=== PATIENT | male | born 1985 | race Caucasian/White ===

== ENCOUNTER 2017-02-07 10:25 | Inpatient (IN) | payer OTHER ==
[~2017-02-07] VITALS: Ht 175.2 cm; Wt 75.1 kg
[2017-02-07] MEDS ORDERED: VALIUM10 MG PO (11:14)
[2017-02-07 12:00] VITALS: BP 114/62
[2017-02-07 12:31] LABS: BASO % 0.3 % (0.0-1.0); EOS # 0.2 10*3/uL (0.0-0.4); EOS % 2.3 % (1.0-4.0); HEMATOCRIT 39.9 % (42.0-52.0); HEMOGLOBIN 13.3 g/dl (14.0-18.0); LYMPH # 1.6 10*3/uL (1.3-4.4); LYMPH % 23.9 % (27.0-41.0); MEAN CELL VOLUME 88.5 fl (80.0-94.0); MEAN CORPUSCULAR HGB 29.5 pg (27.0-31.0); MEAN CORPUSCULAR HGB CONC 33.3 g/dl (33.0-37.0); MEAN PLATELET VOLUME 9.8 fl (9.6-12.3); MONO # 0.6 10*3/uL (0.1-1.0); MONO % 9.2 % (3.0-9.0); NEUT # 4.4 10*3/uL (2.3-7.9); PLATELET COUNT AUTOMATED 156 10*3/uL (130-400); RED BLOOD COUNT 4.51 10*6/uL (4.50-5.90); RED CELL DISTRI WIDTH 12.6 % (0-14.5); WHITE BLOOD COUNT 6.8 10*3/uL (4.8-10.8)
[2017-02-07 12:42] LABS: PROTHROMBIN TIME 10.5 SECONDS (9.0-12.4)
[2017-02-07 12:46] LABS: ALBUMIN 3.6 gm/dl (3.1-4.5); ALKALINE PHOSPHATASE 76 U/L (45-117); BILIRUBIN, TOTAL 0.2 mg/dl (0.2-1.0); BUN 14 mg/dl (7-24); CARBON DIOXIDE 31 mmol/L (21-32); CHLORIDE 104 mmol/L (98-107); EST GLOM FILT AFRICAN AMERICAN > 60 ml/min; GLUCOSE 105 mg/dL (65-99); POTASSIUM 4.4 mmol/L (3.5-5.1); SGOT/AST 46 IU/L (3-35); SGPT/ALT 89 U/L (12-78); SODIUM 139 mmol/L (136-145); TOTAL PROTEIN 6.7 gm/dL (6.4-8.2)
[2017-02-07 12:49] LABS: BILIRUBIN NEGATIVE (NEGATIVE); BLOOD NEGATIVE (NEGATIVE); CLARITY CLEAR (CLEAR); COLOR YELLOW (YELLOW); GLUCOSE NEGATIVE (NEGATIVE); KETONE NEGATIVE (NEGATIVE); LEUKO ESTERASE NEGATIVE (NEGATIVE); NITRITE NEGATIVE (NEGATIVE); PROTEIN NEGATIVE (NEGATIVE)
[2017-02-07 12:57] LABS: URINE AMPHETAMINES < 1000 (1000ng/ml); URINE BARBITURATES < 200 (200ng/ml); URINE COCAINE > 300 (300ng/ml)
[2017-02-07 12:59] LABS: RBC 0-2 rbc/hpf (0-2); URINE REFLEX COMMENT NO (NO); WBC 0-2 wbc/hpf (0-5)
[2017-02-07 16:00] VITALS: BP 102/55
[2017-02-07 20:00] VITALS: BP 119/71
[2017-02-08] VITALS: BP 117/55
[2017-02-08 04:00] VITALS: BP 100/54
[2017-02-08 08:00] VITALS: BP 109/67
[2017-02-08 12:00] VITALS: BP 102/48
[2017-02-08 16:00] VITALS: BP 103/55
== END 2017-02-08 20:00 | disposition left against medical advice (07) | DRG 894 ==
LOC: 5E 10:25
PROVIDERS: Internal Medicine Hospice and Palliative Medicine
DX: F11.23 Opioid dependence with withdrawal (principal); R00.1 Bradycardia, unspecified; D64.9 Anemia, unspecified; R74.0 Nonspecific elevation of levels of transaminase and lactic acid dehydrogenase [LDH]; F17.210 Nicotine dependence, cigarettes, uncomplicated; F14.10 Cocaine abuse, uncomplicated; F19.10 Other psychoactive substance abuse, uncomplicated